=== PATIENT | male | born 1945 | race Caucasian/White ===

== ENCOUNTER 2018-10-29 06:37 | Day surgery (SDC) | payer MEDICARE ==
[2018-10-26 10:56] VITALS: BMI 39.9
[2018-10-29 08:11] VITALS: BP 123/73; TEMP 98
--- NOTE | 2018-10-29 10:23 | CT ---
MYELOGRAM AND POST MYELOGRAM LUMBAR SPINE: Date: 10-29-18 History: Patient with history of lumbar radiculopathy. Technique: Informed consent was obtained. The patient was placed in an oblique prone presentation. The right T12 -L1 intralaminar space was localized using fluoroscopic guidance. The overlying skin was prepped and draped in the usual sterile manner. A 1% Lidocaine solution was used to anesthetize the overlying sof t tissues. A 22 gauge spinal needle was placed into the subarachnoid space. A total of 15 ml of Isovu e M200 was introduced into the thecal sac. Spot and overhead images obtained. Radiation dosimetry: 1.9 minutes of fluoroscopy and DAP of 1.3 mGy*cm^2. FINDINGS: T12-L1: There is some vacuum disc changes seen of the anterior osteophyte at the T12-L1 disc space. N o significant degree of central or neural foraminal narrowing is seen. L1-2: Some disc desiccation is seen. There is bilateral facet hypertrophy. This results in mild centr al and lateral recess stenosis. The neural foramen are patent. L2-3: Vacuum disc changes seen at this level. There is a broad based disc bulge with bilateral facet hypertrophy. This results in moderate degree of central and lateral recess stenosis. L3-4: Vacuum disc changes seen. No significant degree of central stenosis is seen. Mild neural forami nal narrowing is seen due to facet hypertrophy. L4-5: Surgical hardware is seen in the intervertebral disc space. Bilateral facet hypertrophic change s seen. There is an epidural soft tissue component in the left L5 lateral recess compressing the left L5 nerve root. L5 surgical hardware removal tracts are seen in the pedicle of L5. L5-S1: Facet hypertrophic changes seen. IMPRESSION: 1. Multilevel vacuum disc changes in the L2-3 and L3-4 disc spaces. 2. Left L5 lateral recess soft tissue density compressing the left L5 lateral recess and left L5 nerv e root. POS: [facility]
[2018-10-29] MEDS ORDERED: Iopamidol-M 200 41% 20 ML VIAL ONE (11:04)
== END 2018-10-29 09:55 | disposition home or self-care (01) ==
LOC: RAD 06:37
PROVIDERS: ATTEND Orthopaedic Surgery
PROC: B02B1ZZ Computerized Tomography (CT Scan) of Spinal Cord using Low Osmolar Contrast (ICD-10-PCS; principal; 2018-10-29)
DX: M51.16 Intervertebral disc disorders with radiculopathy, lumbar region (principal); M48.061 Spinal stenosis, lumbar region without neurogenic claudication; Z79.82 Long term (current) use of aspirin; Z79.84 Long term (current) use of oral hypoglycemic drugs; Z79.899 Other long term (current) drug therapy; Z98.890 Other specified postprocedural states
CPT/HCPCS: 62304; 72132; Q9966

== ENCOUNTER 2019-07-31 13:10 | Outpatient (CLI) | payer MEDICARE ==
--- NOTE | 2019-07-31 14:38 | MRI ---
MRI LUMBAR SPINE WITHOUT CONTRAST: INDICATIONS: History of spondylolisthesis. COMPARISON: Prior CT lumbar myelogram dated 10/29/2018. FINDINGS: There is stable post surgical change of bilateral posterior inter body fusion constructs, spanning L2 through L4. Left sided laminotomy changes are seen at the left L2-L3 and L3-L4 levels. The visualized retroperitoneum and paravertebral soft tissues appear within normal limits. No acute f racture is demonstrated. The slight retrolisthesis of L2 on L3 is stable. Mild retrolisthesis of L1 on L2 is stable. At L5-S1 severe facet hypertrophy and degenerative change is present. No appreciable central canal or neural foraminal narrowing is evident. At L4-L5 there is no appreciate central canal or neural foraminal narrowing. At L3-L4 joint hypertrophy and a mild residual osteophyte complex induces mild bilateral neural skylar inal narrowing, left greater than right. At L2-L3 there is disk osteophyte complex and facet hypertrophy inducing mild central canal narrowing with moderate right and mild left neural foraminal narrowing. This appears stable to the prior exam. At L1-L2 there is a broad-based bulge with facet hypertrophy causing some mild neural foraminal encro achment. At T12-L1 there is no appreciable central canal or neural foraminal narrowing. IMPRESSION: 1. 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 There is some mild central canal na rrowing at L2-L3 due to residual osteophyte complex inducing moderate right and mild left neural fora tejas narrowing which is stable appearing. 2. Mild neural foraminal narrowing seen at L3-L4. POS: [facility]
== END 2019-07-31 13:11 | disposition home or self-care (01) ==
LOC: BICMRI 13:10
PROVIDERS: ATTEND Orthopaedic Surgery
DX: M43.16 Spondylolisthesis, lumbar region (principal); M48.061 Spinal stenosis, lumbar region without neurogenic claudication; M47.816 Spondylosis without myelopathy or radiculopathy, lumbar region; Z98.890 Other specified postprocedural states
CPT/HCPCS: 72148

== ENCOUNTER 2021-07-03 15:23 | Inpatient (IN) | payer MEDICARE ==
[2021-07-03 16:47] LABS: #Basophils 0.1 thou/uL (0.0-0.2); #Eosinphils 0.3 thou/uL (0.0-0.7); #Lymphocytes 1.8 thou/uL (1.20-3.40); #Neutrophils 6.2 thou/uL (1.40-6.50); %Basophils 0.7 % (0.0-1.0); %Eosinophils 2.9 % (0.0-10.0); %Lymphocytes 19.7 % (21.0-51.0); %Monocytes 10.3 % (0.0-10.0); %Neutrophils 66.4 % (42.0-75.0); Hemoglobin 12.6 g/dL (14.0-18.0); Mean Corpuscular Hemoglobin 28.7 pg (27.0-31.0); Mean Platelet Volume 7.5 fL (7.4-10.4); Platelet Count 285 thou/uL (130-400); RBC Distribution Width 13.1 % (11.5-14.5); White Blood Cell (WBC) Count 9.3 thou/uL (4.8-10.8)
[2021-07-03 17:07] LABS: ALT (SGPT) 10 U/L (8-55); AST (SGOT) 11 U/L (5-34); Albumin 3.4 g/dL (3.4-4.8); Alkaline Phosphatase 65 U/L (40-110); Anion Gap 16 mmol/L (10-20); BUN (Urea Nitrogen) 44 mg/dL (8.4-25.7); Bilirubin, Total 0.5 mg/dL (0.2-1.2); Calc. Creatinine Clearance 0 mL/min (70-130); Calcium 9.4 mg/dL (7.8-10.44); Carbon Dioxide 22 mmol/L (23-31); Chloride 104 mmol/L (98-107); Glucose 117 mg/dL (83-110); Potassium 4.5 mmol/L (3.5-5.1); Protein, Total 6.4 g/dL (5.8-8.1); Sodium 137 mmol/L (136-145)
[2021-07-03] MEDS ORDERED: Ondansetron ODT 4 MG TAB PO PRN (18:15)
[2021-07-03] MEDS ORDERED: Acetaminophen 325 MG TAB PO PRN (18:15)
[2021-07-03] MEDS ORDERED: Dextrose 50% Abboject 50 ML SYRINGE SLOW IVP PRN (18:21)
[2021-07-03] MEDS ORDERED: HumaLOG 300 UNITS/3 ML VIAL SC PRN (18:21)
[2021-07-03] MEDS ORDERED: Dextrose 5% in Water 1,000 ML IV PRN (18:21)
[2021-07-03 19:47] LABS: SARS-CoV-2 NAA Rapid Test Not Detected (NotDetected)
[2021-07-03 20:32] LABS: Troponin I Less than 0.010 ng/mL (< 0.028)
[2021-07-03 22:58] LABS: Troponin I Less than 0.010 ng/mL (< 0.028)
[2021-07-03 23:40] VITALS: BMI 39.1
[2021-07-03] MEDS: Sodium Bicarbonate Tab 325 MG TAB PO SCH (23:55)
[2021-07-04 01:55] LABS: Bacteria/HPF 1+ HPF (None Seen); Bilirubin Negative (Negative); Blood, Urine Negative (Negative); Clarity Clear (Clear); Glucose, Urine (Dipstick) Normal (Negative); Ketone, Urine Negative (Negative); Leukocyte Negative Leu/uL (Negative); Nitrite Negative (Negative); Protein, Urine (Dipstick) Negative (Neg-Trace); RBC/HPF 0-3 HPF (0-3); Specific Gravity, Urine 1.009 (1.002-1.036); Squamous Epithelial 0-3 HPF (0-3); Urobilinogen Normal mg/dL (Less than 2); WBC/HPF None Seen HPF (0-3); pH, Urine 5.5 (5.0-9.0)
[2021-07-04 02:03] LABS: Creatinine, Urine 55.72 mg/dL (63-166)
[2021-07-04 06:08] LABS: #Eosinphils 0.2 thou/uL (0.0-0.7); #Monocytes 0.9 thou/uL (0.11-0.59); #Neutrophils 6.2 thou/uL (1.40-6.50); %Basophils 0.1 % (0.0-1.0); %Eosinophils 2.6 % (0.0-10.0); %Lymphocytes 21.1 % (21.0-51.0); %Neutrophils 66.2 % (42.0-75.0); Hemoglobin 12.9 g/dL (14.0-18.0); Mean Corpuscular HGB CONC 33.6 g/dL (32.0-36.0); Mean Corpuscular Hemoglobin 29.6 pg (27.0-31.0); Mean Corpuscular Volume 88.1 fL (78.0-98.0); Mean Platelet Volume 7.9 fL (7.4-10.4); Platelet Count 307 thou/uL (130-400); RBC Distribution Width 13.3 % (11.5-14.5); Red Blood Cell (RBC) Count 4.37 mill/uL (4.70-6.10); White Blood Cell (WBC) Count 9.3 thou/uL (4.8-10.8)
[2021-07-04 06:29] LABS: Anion Gap 16 mmol/L (10-20); BUN (Urea Nitrogen) 41 mg/dL (8.4-25.7); Calc. Creatinine Clearance 38 mL/min (70-130); Calcium 9.6 mg/dL (7.8-10.44); Carbon Dioxide 22 mmol/L (23-31); Chloride 105 mmol/L (98-107); Glucose 106 mg/dL (83-110); Potassium 4.6 mmol/L (3.5-5.1); Sodium 138 mmol/L (136-145)
[2021-07-04] MEDS: Sodium Bicarbonate Tab 325 MG TAB PO SCH (08:56)
[2021-07-04] MEDS: Enoxaparin Sodium 30 MG/0.3 ML SYRINGE SC SCH (08:57)
[2021-07-04] MEDS ORDERED: FLU VACC QS2021-22(65YR UP)/PF 240 MCG/0.7 ML SYRINGE IM ONE (09:00)
[2021-07-04] MEDS: HumaLOG 300 UNITS/3 ML VIAL SC PRN ×3 (11:52→20:24)
[2021-07-04] MEDS ORDERED: Furosemide 80 MG TAB PO SCH (15:15)
[2021-07-04] MEDS: Metoprolol Tartrate 25 MG TAB PO SCH (20:18)
[2021-07-04] MEDS ORDERED: Simvastatin 10 MG TAB PO SCH (21:00)
[2021-07-05 05:58] LABS: Albumin 3.8 g/dL (3.4-4.8); Anion Gap 15 mmol/L (10-20); BUN (Urea Nitrogen) 41 mg/dL (8.4-25.7); BUN/Creatinine Ratio 16.67; Calc. Creatinine Clearance 40 mL/min (70-130); Calcium 10.1 mg/dL (7.8-10.44); Carbon Dioxide 26 mmol/L (23-31); Chloride 102 mmol/L (98-107); Glucose 135 mg/dL (83-110); Phosphorus 3.7 mg/dL (2.3-4.7); Sodium 139 mmol/L (136-145)
[2021-07-05 08:03] VITALS: BP 144/78; TEMP 97.5
[2021-07-05] MEDS ORDERED: Aspirin 81 mg Enteric Coated Tablet PO SCH (09:00)
[2021-07-05] MEDS ORDERED: Furosemide 40 MG TAB PO SCH (09:00)
[2021-07-05] MEDS ORDERED: Tamsulosin HCl 0.4 MG CAP PO SCH (09:00)
[2021-07-05] MEDS: Metoprolol Tartrate 25 MG TAB PO SCH (09:37)
[2021-07-05] MEDS: Enoxaparin Sodium 30 MG/0.3 ML SYRINGE SC SCH (09:39)
== END 2021-07-05 11:57 | disposition home or self-care (01) | DRG 682 ==
LOC: ERS 15:23 → SJJU 18:10
PROVIDERS: ADMIT Family Medicine; ATTEND Internal Medicine
DX: N17.9 Acute kidney failure, unspecified (principal); I50.33 Acute on chronic diastolic (congestive) heart failure; I13.0 Hypertensive heart and chronic kidney disease with heart failure and stage 1 through stage 4 chronic kidney disease, or unspecified chronic kidney disease; E87.2 Acidosis; N18.30 Chronic kidney disease, stage 3 unspecified; E11.22 Type 2 diabetes mellitus with diabetic chronic kidney disease; E78.5 Hyperlipidemia, unspecified; N40.0 Benign prostatic hyperplasia without lower urinary tract symptoms; Z96.641 Presence of right artificial hip joint; E78.00 Pure hypercholesterolemia, unspecified; Z20.822 Contact with and (suspected) exposure to COVID-19; E11.51 Type 2 diabetes mellitus with diabetic peripheral angiopathy without gangrene; E11.21 Type 2 diabetes mellitus with diabetic nephropathy; G25.81 Restless legs syndrome; E11.43 Type 2 diabetes mellitus with diabetic autonomic (poly)neuropathy; K31.84 Gastroparesis; Z79.82 Long term (current) use of aspirin; Z79.899 Other long term (current) drug therapy; D63.1 Anemia in chronic kidney disease
CPT/HCPCS: 36415; 36416; 71045; 76770; 80048; 80053; 80069; 81001; 82550; 82570; 83880; 84300; 84484; 85025; 93005; 93306; 93975; J1650; J1815; U0002